=== PATIENT | male | born 1965 | race Asian ===

== ENCOUNTER 2017-11-27 12:32 | Day surgery (SDC) | payer BC ==
[2017-11-27] MEDS ORDERED: PROPOFOL 40 ML (14:57)
== END 2017-11-27 15:27 | disposition home or self-care (01) ==
LOC: GIL 12:32
DX: K92.1 Melena (principal); D12.5 Benign neoplasm of sigmoid colon; K64.8 Other hemorrhoids; Z87.891 Personal history of nicotine dependence
CPT/HCPCS: 45380; 88305